=== PATIENT | male | born 1995 | race Caucasian/White ===

== ENCOUNTER 2016-11-02 21:34 | Emergency (ER) | payer SELFPAY ==
[~2016-11-02] VITALS: Ht 185.4 cm; Wt 68.3 kg
[~2016-11-02 21:34] MED LIST: IBUP800T23 PO; ZOFR4TAB3 SL
[2016-11-02 21:44] VITALS: BP 136/63; PULSE 81; RESP 18; TEMP 99.3; O2SAT 99
[2016-11-02 22:05] VITALS: BP 136/63; PULSE 81; RESP 18; TEMP 99.3; O2SAT 99
[2016-11-02] MEDS ORDERED: SODIUM CHLOR 0.9% 1000 ML INJ 1,000 ML IV SCH (22:09)
[2016-11-02] MEDS ORDERED: PANTOPRAZOLE SODIUM 40 MG VIAL IVP ONE (22:15)
--- NOTE | 2016-11-02 22:16 | PD ---
HPI Chief Complaint: Flank/Kidney Pain Time Seen by Provider: 22:03 Travel History International Travel<30 days: No Contact w/Intl Traveler<30days: No Traveled to known affect area: No History of Present Illness HPI 21-year-old male complains of abdominal pain. Patient states that the pain started yesterday afternoon. Patient states the pain cramping pain localized upper abdomen radiation to the flank area. Patient denies any fever chills. Patient denies any dysuria or frequency. Patient denies any back pain. Patient states the pain is worse with bending over. On a scale of 1-10 the pain is a 7. 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 Patient also has history ADD and asthma. Patient states that last alcohol consumption was several months ago. PFSH Past Medical History ADD: Yes ADHD: Yes Asthma: Yes Bipolar Disorder: Yes Cancer: No Diminished Hearing: No Endocrine: Yes (HYPOGLYCEMIA, NO MEDICATION FOR IT) Hepatitis: No Hiatal Hernia: No Neurologic: Yes Respiratory: Yes (ASTHMA A CHILD) Immunizations Current: Yes (ALL UTD ) Seizures: Yes ( A CHILD) Thyroid Disease: No Past Surgical History Abdominal Surgery: No Cardiac Surgery: No Ear Surgery: No Endocrine Surgery: No Eye Surgery: No Genitourinary Surgery: No Gynecologic Surgery: No Oral Surgery: No Pacemaker: No Thoracic Surgery: No Other Surgery: Yes (NASAL SURGERY ) Social History Alcohol Use: No (3 months) Tobacco Use: Yes (1 ppd) Substance Use: Yes (MARIJUANA) Allergies-Medications (Allergen,Severity, Reaction): Coded Allergies: Bee Sting (Verified Allergy, Severe, SWELLING, ASTHMA, 07/28/15) Reported Meds & Prescriptions Reported Meds & Active Scripts Active Ibuprofen 800 Mg Tab 800 Mg PO TID PRN Zofran ODT (Ondansetron HCl) 4 Mg Tab 4 Mg SL Q6H PRN FOR NAUSEA/VOMITING Review of Systems General / Constitutional: No: Fever Eyes: No: Visual changes HENT: No: Headaches Cardiovascular: No: Chest Pain or Discomfort Respiratory: No: Shortness of Breath Gastrointestinal: Positive: Abdominal Pain Genitourinary: No: Dysuria Musculoskeletal: No: Pain Skin: No Rash Neurologic: No: Weakness Psychiatric: No: Depression Endocrine: No: Polydipsia Hematologic/Lymphatic: No: Easy Bruising Physical Exam Narrative GENERAL: Well-nourished, well-developed patient. SKIN: Focused skin assessment warm/dry. HEAD: Normocephalic. EYES: No scleral icterus. No injection or drainage. NECK: Supple, trachea midline. No JVD or lymphadenopathy. CARDIOVASCULAR: Regular rate and rhythm without murmurs, gallops, or rubs. RESPIRATORY: Breath sounds equal bilaterally. No accessory muscle use. GASTROINTESTINAL: Abdomen soft, nondistended. Patient has mild to moderate tenderness on palpation upper abdomen. No rebound tenderness. No mass. MUSCULOSKELETAL: No cyanosis, or edema. BACK: Nontender without obvious deformity. No CVA tenderness. Neurologic exam normal. Data Data Last Documented VS Vital Signs Date Time Temp Pulse Resp B/P Pulse Ox O2 Delivery O2 Flow Rate FiO2 11/02/16 22:42 74 18 128/54 98 Room Air 11/02/16 22:05 99.3 Orders Complete Blood Count With Diff (11/02/16 22:09) Comprehensive Metabolic Panel (11/02/16 22:09) Lipase (11/02/16 22:09) Urinalysis - C+S If Indicated (11/02/16 22:09) Ct Abd/Pel W Iv Contrast(Rout) (11/02/16 22:09) Iv Access Insert/Monitor (11/02/16 22:09) Ecg Monitoring (11/02/16 22:09) Oximetry (11/02/16 22:09) Pantoprazole Inj (Protonix Inj) (11/02/16 22:15) Sodium Chlor 0.9% 1000 Ml Inj (Ns 1000 M (11/02/16 22:09) Al-Mag Hy-Si 40-40-4 Mg/Ml Liq (Mag-Al P (11/02/16 23:00) Yengj-Ihyuvy-Ukgqsj-Pb Liq ( Liq (11/02/16 23:00) Iohexol 350 Inj (Omnipaque 350 Inj) (11/02/16 23:08) Labs Laboratory Tests Test 11/02/16 11/02/16 22:20 22:27 Urine Color YELLOW Urine Turbidity CLEAR Urine pH 6.0 Urine Specific [place] 1.025 Urine Protein TRACE mg/dL Urine Glucose (UA) NEG mg/dL Urine Ketones 15 mg/dL Urine Occult Blood TRACE Urine Nitrite NEG Urine Bilirubin NEG Urine Leukocyte Esterase NEG Urine RBC 0-3 /hpf Urine WBC 3-5 /hpf Urine Squamous Epithelial 0-5 /hpf Cells Urine Bacteria OCC /hpf Microscopic Urinalysis Comment CULT NOT INDICATED White Blood Count 5.4 TH/MM3 Red Blood Count 4.38 MIL/MM3 Hemoglobin 13.1 GM/DL Hematocrit 39.0 % Mean Corpuscular Volume 88.9 FL Mean Corpuscular Hemoglobin 30.0 PG Mean Corpuscular Hemoglobin 33.7 % Concent Red Cell Distribution Width 13.1 % Platelet Count 193 TH/MM3 Mean Platelet Volume 8.4 FL Neutrophils (%) (Auto) 63.4 % Lymphocytes (%) (Auto) 23.7 % Monocytes (%) (Auto) 11.7 % Eosinophils (%) (Auto) 0.5 % Basophils (%) (Auto) 0.7 % Neutrophils # (Auto) 3.5 TH/MM3 Lymphocytes # (Auto) 1.3 TH/MM3 Monocytes # (Auto) 0.6 TH/MM3 Eosinophils # (Auto) 0.0 TH/MM3 Basophils # (Auto) 0.0 TH/MM3 CBC Comment DIFF FINAL Differential Comment Sodium Level 137 MEQ/L Potassium Level 3.3 MEQ/L Chloride Level 103 MEQ/L Carbon Dioxide Level 26.3 MEQ/L Anion Gap 8 MEQ/L Blood Urea Nitrogen 9 MG/DL Creatinine 1.00 MG/DL Estimat Glomerular Filtration 93 ML/MIN Rate Random Glucose 130 MG/DL Calcium Level 8.8 MG/DL Total Bilirubin 0.2 MG/DL Aspartate Amino Transf 17 U/L (AST/SGOT) Alanine Aminotransferase 26 U/L (ALT/SGPT) Alkaline Phosphatase 49 U/L Total Protein 7.0 GM/DL Albumin 3.7 GM/DL Lipase 125 U/L [facility] Medical Decision Making Medical Screen Exam Complete: Yes Emergency Medical Condition: Yes Interpretation(s) Last Impressions Abdomen/Pelvis CT 11/02/16 3679 Signed Impressions: Service Date/Time: Wednesday, November 02, 2016 22:55 - CONCLUSION: Normal examination. I believe the appendix is retrocecal but unremarkable. Payam Bergeron MD 23:35 PM. CBC within normal limit. CMP within normal limit. Potassium 3.3. UA is negative. Differential Diagnosis Differential diagnosis including gastritis, PUD, pancreatitis, cholecystitis, colitis, UTI, pyelonephritis, nephrolithiasis, appendicitis. Narrative Course 21-year-old male with upper abdominal pain. History of alcohol-induced pancreatitis. Normal saline solution 1 25 cc an hour. Protonix 40 mg IV. Diagnosis Primary Impression: Abdominal pain Qualified Code: R10.10 - Pain of upper abdomen Additional Impression: Gastritis Qualified Code: K29.00 - Acute gastritis without hemorrhage, unspecified gastritis type Patient Instructions: General Instructions Additional Instructions: Take medications as directed. Follow-up with personal physician and GI specialist. Return if persistent problem or worse. Med/Other Pt SpecificInfo: Prescription(s) given Scripts Dicyclomine (Bentyl)10 Mg Cap10 Mg PO TID PRN (Bowel Management) #21 CAP Ref 0 Prov:Eduar Patterson MD 11/02/16 Sucralfate (Carafate)1 Gm Tab1 Gm PO QID #120 TAB Ref 0 On empty stomach Prov:Eduar Patterson MD 11/02/16 Pantoprazole (Protonix)20 Mg Tab20 Mg PO DAILY #30 TAB Prov:Eduar Patterson MD 11/02/16 Disposition: 01 DISCHARGE HOME Condition: Stable Eduar Patterson MD Nov 02, 2016 22:16
[2016-11-02 22:35] LABS: BLOOD, URINE TRACE (NEG); GLUCOSE,URINE NEG (NEG); KETONE, URINE 15 mg/dL (NEG); NITRITE,URINE NEG (NEG)
[2016-11-02 22:37] LABS: AUTOMATED NEUTROPHIL # 3.5 TH/MM3 (1.8-7.7); BASOPHIL % 0.7 % (0.0-2.0); EOSINOPHIL % 0.5 % (0.0-4.0); HEMO FLAGS DIFF FINAL; LYMPH % 23.7 % (9.0-44.0); LYMPHOCYTE # 1.3 TH/MM3 (1.0-4.8); MEAN CELL VOLUME 88.9 FL (80.0-100.0); MEAN CORPUSCULAR HGB CONC 33.7 % (32.0-36.0); MONO % 11.7 % (0.0-8.0); NEUT % 63.4 % (16.0-70.0); PLATELET COUNT 193 TH/MM3 (150-450); RED BLOOD COUNT 4.38 MIL/MM3 (4.50-5.90); RED CELL DISTRIBUTION WIDTH 13.1 % (11.6-17.2); WHITE BLOOD COUNT 5.4 TH/MM3 (4.0-11.0)
[2016-11-02 22:41] VITALS: O2SAT 98
[2016-11-02 22:41] LABS: BACTERIA, URINE OCC /hpf; COMMENT (UR) CULT NOT INDICATED; CULTURE IF INDICATED CULT NOT INDICATED; RBC, URINE 0-3 /hpf (0-3); SQUAMOUS EPITHELIAL CELL URINE 0-5 /hpf (0-5); URINE COLOR YELLOW (YELLW/STRAW)
[2016-11-02 22:42] VITALS: BP 128/54; PULSE 74; RESP 18; O2SAT 98
[2016-11-02 22:45] LABS: CHLORIDE 103 MEQ/L (98-107); POTASSIUM 3.3 MEQ/L (3.5-5.1); SODIUM (NA) 137 MEQ/L (136-145)
[2016-11-02 22:49] LABS: ANION GAP 8 MEQ/L (5-15); BICARBONATE 26.3 MEQ/L (21.0-32.0); BLOOD UREA NITROGEN 9 MG/DL (7-18)
[2016-11-02 22:52] LABS: ALT (GPT) 26 U/L (12-78); AST (GOT) 17 U/L (15-37); GLOMERULAR FILTRATION RATE 93 ML/MIN (>89)
[2016-11-02 22:53] LABS: TOTAL BILIRUBIN ADULT 0.2 MG/DL (0.2-1.0)
[2016-11-02 22:54] LABS: ALKALINE PHOSPHATASE 49 U/L (45-117)
[2016-11-02] MEDS ORDERED: ALUMINUM/MAGNESIUM/SIMETH 30 ML CUP PO ONE (23:00)
[2016-11-02] MEDS ORDERED: ATROPINE/SCOPOLAM/HYOSCYAM/PB ELIXIR 10 ML CUP PO ONE (23:00)
[2016-11-02] MEDS ORDERED: IOHEXOL 350 MG/ML 10 ML VIAL (for RAD DIAG) IV ONE (23:08)
--- NOTE | 2016-11-02 23:28 | RADRPT ---
EXAM DATE/TIME: 11/02/2016 22:55 [facility] COMPARISON: No previous studies available for comparison. INDICATIONS : Bilateral flank painsince yesterday. Prior history of pancreatitis IV CONTRAST: 97 cc Omnipaque 350 (iohexol) IV ORAL CONTRAST: No oral contrast ingested. RADIATION DOSE: 4.68 CTDIvol (mGy) MEDICAL HISTORY : Pancreatitis. SURGICAL HISTORY : None. ENCOUNTER: Initial ACUITY: 1 day PAIN SCALE: 10/10 LOCATION: Bilateral flank TECHNIQUE: Volumetric scanning of the abdomen and pelvis was performed. Using automated exposure control and ad justment of the mA and/or kV according to patient size, radiation dose was kept as low as reasonably achievable to obtain optimal diagnostic quality images. DICOM format image data is available electro nically for review and comparison. FINDINGS: LOWER LUNGS: The visualized lower lungs are clear. LIVER: Homogeneous density without lesion. There is no dilation of the biliary tree. No calcified [place] es. SPLEEN: Normal size without lesion. PANCREAS: Within normal limits. KIDNEYS: Normal in size and shape. There is no mass, stone or hydronephrosis. ADRENAL GLANDS: Within normal limits. VASCULAR: There is no aortic aneurysm. BOWEL/MESENTERY: The stomach, small bowel, and colon demonstrate no acute abnormality. There is no free intraperitone al air or fluid. ABDOMINAL WALL: Within normal limits. RETROPERITONEUM: There is no lymphadenopathy. BLADDER: No wall thickening or mass. REPRODUCTIVE: Within normal limits. INGUINAL: There is no lymphadenopathy or hernia. MUSCULOSKELETAL: Within normal limits for patient age. CONCLUSION: Normal examination. I believe the appendix is retrocecal but unremarkable. Payam Bergeron MD on November 02, 2016 at 23:25 Board Certified Radiologist. This report was verified electronically.
[2016-11-02] MEDS ORDERED: DICY10 PO (23:40)
[2016-11-02] MEDS ORDERED: PANT20 PO (23:40)
[2016-11-02] MEDS ORDERED: CARA1TAB6 PO (23:40)
[2016-11-03 00:03] VITALS: BP 136/58
== END 2016-11-03 00:05 | disposition home or self-care (01) ==
LOC: PHED 21:34
DX: R10.10 Upper abdominal pain, unspecified (principal); K29.00 Acute gastritis without bleeding; F17.200 Nicotine dependence, unspecified, uncomplicated; Z87.19 Personal history of other diseases of the digestive system; Z86.59 Personal history of other mental and behavioral disorders; Z87.09 Personal history of other diseases of the respiratory system; Z86.39 Personal history of other endocrine, nutritional and metabolic disease; Z86.69 Personal history of other diseases of the nervous system and sense organs
CPT/HCPCS: 74177; 80053; 81001; 83690; 85025; 96361; 96374; 99285; C9113; J7030; Q9967

== ENCOUNTER 2016-11-14 01:34 | Emergency (ER) | payer SELFPAY ==
[~2016-11-14] VITALS: Ht 185.4 cm; Wt 69.1 kg
[~2016-11-14 01:34] MED LIST changes: +CARA1TAB6 PO; +DICY10 PO; +PANT20 PO
[2016-11-14 01:48] VITALS: BP 126/59; PULSE 88; RESP 16; TEMP 99.6; O2SAT 98
[2016-11-14 02:42] LABS: BLOOD, URINE NEG (NEG); GLUCOSE,URINE NEG (NEG); KETONE, URINE NEG (NEG); NITRITE,URINE NEG (NEG); PH, URINE 6.5 (5.0-8.5)
[2016-11-14 03:04] LABS: URINE COLOR YELLOW (YELLW/STRAW)
[2016-11-14 03:05] LABS: COMMENT (UR) CULT NOT INDICATED; CULTURE IF INDICATED CULT NOT INDICATED; SQUAMOUS EPITHELIAL CELL URINE 0-5 /hpf (0-5)
[2016-11-14 04:01] VITALS: BP 133/61; PULSE 95; RESP 18; O2SAT 99
--- NOTE | 2016-11-14 05:45 | PD ---
HPI Chief Complaint: Pain: Acute or Chronic Time Seen by Provider: 05:41 Travel History International Travel<30 days: No Contact w/Intl Traveler<30days: No Traveled to known affect area: No History of Present Illness HPI The patient is a 21-year-old male who complains of right testicular pain for 3 days. He has nausea without vomiting. He denies any fever. He denies any dysuria, frequency or urgency. He denies any abdominal pain. He denies any penile discharge. PFSH Past Medical History ADD: Yes ADHD: Yes Asthma: Yes Bipolar Disorder: Yes Cancer: No Diminished Hearing: No Endocrine: Yes (HYPOGLYCEMIA, NO MEDICATION FOR IT) Hepatitis: No Hiatal Hernia: No Neurologic: Yes Respiratory: Yes (ASTHMA A CHILD) Immunizations Current: Yes (ALL UTD ) Pancreatitis: Yes (HISTORY OF) Seizures: Yes ( A CHILD from fever) Thyroid Disease: No Tetanus Vaccination: Unknown Influenza Vaccination: No Past Surgical History Abdominal Surgery: No Cardiac Surgery: No Ear Surgery: No Endocrine Surgery: No Eye Surgery: No Genitourinary Surgery: No Gynecologic Surgery: No Oral Surgery: No Pacemaker: No Thoracic Surgery: No Other Surgery: Yes (NASAL SURGERY 2010) Social History Alcohol Use: No (quit in 2013) Tobacco Use: Yes (1 ppd) Substance Use: Yes (MARIJUANA) Allergies-Medications (Allergen,Severity, Reaction): Coded Allergies: Bee Sting (Verified Allergy, Severe, SWELLING, ASTHMA, 11/14/16) Reported Meds & Prescriptions Reported Meds & Active Scripts Active Hasty (Hydrocodone-Acetaminophen) 5-325 mg Tab 1 Tab PO Q6H PRN Ibuprofen 600 Mg Tab 600 Mg PO Q6H PRN Doxycycline Hyclate 100 Mg Cap 100 Mg PO BID Review of Systems Except as stated in HPI: all other systems reviewed are Neg Physical Exam Narrative GENERAL: The patient is alert, oriented 3 and slight apparent distress with his right testicular pain. His vital signs are normal. SKIN: Focused skin assessment warm/dry. HEAD: Atraumatic. Normocephalic. EYES: Pupils equal and round. No scleral icterus. No injection or drainage. ENT: No nasal bleeding or discharge. Mucous membranes pink and moist. NECK: Trachea midline. No JVD. CARDIOVASCULAR: Regular rate and rhythm. No murmur appreciated. RESPIRATORY: No accessory muscle use. Clear to auscultation. Breath sounds equal bilaterally. GASTROINTESTINAL: Abdomen soft, non-tender, nondistended. Hepatic and splenic margins not palpable. No guarding or rebound is present. MUSCULOSKELETAL: No obvious deformities. No clubbing. No cyanosis. No edema. NEUROLOGICAL: Awake and alert. No obvious cranial nerve deficits. Motor grossly within normal limits. Normal speech. PSYCHIATRIC: Appropriate mood and affect; insight and judgment normal. GENITOURINARY: Circumcised. Testes the right testes appears to be slightly rotated and slightly swollen. The right testicle is slightly tender, the left testis is not tender and not swollen. No urethral discharge. Data Data Last Documented VS Vital Signs Date Time Temp Pulse Resp B/P Pulse Ox O2 Delivery O2 Flow Rate FiO2 11/14/16 08:49 73 16 117/59 100 11/14/16 07:15 Room Air 11/14/16 01:48 99.6 Orders Urinalysis - C+S If Indicated (11/14/16 02:32) Us Testicles W Doppler (11/14/16 05:44) Ibuprofen (Motrin) (11/14/16 07:30) Acetamin-Hydrocod 325-5 Mg ([place] 5-325 (11/14/16 07:30) Ceftriaxone Inj (Rocephin Inj) (11/14/16 07:30) Sodium Chloride 0.9% Flush (Ns Flush) (11/14/16 07:30) Lidocaine 1% Inj (50 Ml) (Xylocaine 1% I (11/14/16 07:30) Labs Laboratory Tests Test 11/14/16 02:30 Urine Color YELLOW Urine Turbidity CLEAR Urine pH 6.5 Urine Specific [place] 1.005 Urine Protein NEG mg/dL Urine Glucose (UA) NEG mg/dL Urine Ketones NEG mg/dL Urine Occult Blood NEG Urine Nitrite NEG Urine Bilirubin NEG Urine Leukocyte Esterase NEG Urine Squamous Epithelial 0-5 /hpf Cells Microscopic Urinalysis Comment CULT NOT INDICATED MDM Medical Decision Making Medical Screen Exam Complete: Yes Emergency Medical Condition: Yes Medical Record Reviewed: Yes Differential Diagnosis Testicular torsion, orchitis, epididymitis, urinary tract infection Narrative Course The patient is transferred to Dr. Rain at this time, it is 7 AM. He will review the results of the Doppler ultrasound. Scripts Hydrocodone-Acetaminophen (Hasty)5-325 mg Tab1 Tab PO Q6H PRN (PAIN) #12 TAB Ref 0 Prov:Eren Rain MD 11/14/16 Ibuprofen 600 Mg [id number] Mg PO Q6H PRN (Pain/Inflammation) #20 TAB Ref 0 Prov:Eren Rain MD 11/14/16 Doxycycline Hyclate 100 Mg [id number] Mg PO BID #20 CAP Ref 0 Prov:Eren Rain MD 11/14/16 Richie Parra MD Nov 14, 2016 05:45
[2016-11-14 06:16] VITALS: BP 131/51; PULSE 70; RESP 16; O2SAT 98
--- NOTE | 2016-11-14 07:01 | PD ---
Physical Exam Date Seen by Provider: Nov 14, 2016 Time Seen by Provider: 06:59 Narrative The patient is a 21-year-old male who was initially evaluated by the previous physician, Dr. Parra. Please refer to the initial history, physical, diagnostic evaluation, and treatment modality plan. Data Data Last Documented VS Vital Signs Date Time Temp Pulse Resp B/P Pulse Ox O2 Delivery O2 Flow Rate FiO2 11/14/16 06:16 70 16 131/51 98 Room Air 11/14/16 01:48 99.6 Orders Urinalysis - C+S If Indicated (11/14/16 02:32) Us Testicles W Doppler (11/14/16 05:44) Ibuprofen (Motrin) (11/14/16 07:30) Acetamin-Hydrocod 325-5 Mg ([place] 5-325 (11/14/16 07:30) Labs Laboratory Tests Test 11/14/16 02:30 Urine Color YELLOW Urine Turbidity CLEAR Urine pH 6.5 Urine Specific [place] 1.005 Urine Protein NEG mg/dL Urine Glucose (UA) NEG mg/dL Urine Ketones NEG mg/dL Urine Occult Blood NEG Urine Nitrite NEG Urine Bilirubin NEG Urine Leukocyte Esterase NEG Urine Squamous Epithelial 0-5 /hpf Cells Microscopic Urinalysis Comment CULT NOT INDICATED MDM Medical Record Reviewed: Yes Supervised Visit with NICOLE: No Interpretation(s) Last Impressions Scrotum Ultrasound 11/14/1644 Signed Impressions: Service Date/Time: Monday, November 14, 2016 06:47 - CONCLUSION: 1. Hyperemic right testis suggesting orchitis in the proper clinical setting. No testicular masses. 2. The left testis is normal. 3. Left greater than right varicoceles. Festus Carroll MD Laboratory Tests Test 11/14/16 02:30 Urine Color YELLOW Urine Turbidity CLEAR Urine pH 6.5 Urine Specific [place] 1.005 Urine Protein NEG mg/dL Urine Glucose (UA) NEG mg/dL Urine Ketones NEG mg/dL Urine Occult Blood NEG Urine Nitrite NEG Urine Bilirubin NEG Urine Leukocyte Esterase NEG Urine Squamous Epithelial 0-5 /hpf Cells Microscopic Urinalysis Comment CULT NOT INDICATED Ultrasound the testicle with Doppler reveals hyperemic right testes suggesting orchitis in the proper clinical setting. No testicular masses. The left testes is normal. Left greater than right varicoceles. Differential Diagnosis Differential diagnosis includes epididymitis, varicocele, hydrocele, testicular torsion, abscess, hernia, anasarca, UTI, STI. Narrative Course The patient is a 21-year-old male who was initially evaluated by the previous physician, Dr. Parra. Please refer to the initial history, physical, diagnostic evaluation, and treatment modality plan. The patient was signed out at 7 AM with ultrasound of the testicle/scrotum pending. UA was unremarkable. Ultrasound reveals orchitis the right testicle. The patient was administered ibuprofen and [place] for pain. The patient's etiology could be bacterial versus viral. He does note subjective fevers and chills, denies any URI symptoms. Therefore, patient will be treated with Rocephin and doxycycline, however, he is advised the orchitis could be viral in origin. He will be provided pain medications, is advised elevate and ice the areas needed and follow-up with urology. Diagnosis Primary Impression: Orchitis Patient Instructions: General Instructions Additional Instruction: Medications as directed. Follow-up with urology as needed. Elevate and ice as needed. Activity as tolerated. Please provide the patient a copy of his ultrasound results at discharge. Med/Other Pt SpecificInfo: Prescription(s) given Scripts Hydrocodone-Acetaminophen ([place])5-325 mg Tab1 Tab PO Q6H PRN (PAIN) #12 TAB Ref 0 Prov:Eren Rain MD 11/14/16 Ibuprofen 600 Mg [id number] Mg PO Q6H PRN (Pain/Inflammation) #20 TAB Ref 0 Prov:Eren Rain MD 11/14/16 Doxycycline Hyclate 100 Mg [id number] Mg PO BID #20 CAP Ref 0 Prov:Eren Rain MD 11/14/16 Disposition: 01 DISCHARGE HOME Condition: Stable Eren Rain MD Nov 14, 2016 07:01
[2016-11-14 07:15] VITALS: BP 129/55; PULSE 78; RESP 16; O2SAT 98
--- NOTE | 2016-11-14 07:15 | RADRPT ---
EXAM DATE/TIME: 11/14/2016 06:47 [facility] COMPARISON: No previous studies available for comparison. INDICATIONS : Right testicle and groin pain. MEDICAL HISTORY : Pancreatitis. SURGICAL HISTORY : None. ENCOUNTER: Initial ACUITY: 3 days PAIN SCORE: 10/10 LOCATION: Bilateral testicle. MEASUREMENTS: RIGHT TESTICLE: 5.5 x 3.6 x 2.7cm LEFT TESTICLE: 3.7 x 3.7 x 2.3cm FINDINGS: Right testicle is hyperemic relative to the left. No masses are seen. Right and left epididymes are n ormal. There is a tiny right and a moderate to large left varicocele. No hydrocele fluid. CONCLUSION: 1. Hyperemic right testis suggesting orchitis in the proper clinical setting. No testicular masses. 2. The left testis is normal. 3. Left greater than right varicoceles. Festus Carroll MD on November 14, 2016 at 7:11 Board Certified Radiologist. This report was verified electronically.
[2016-11-14] MEDS ORDERED: IBUP-232 PO (07:28)
[2016-11-14] MEDS ORDERED: NORC5TAB PO (07:28)
[2016-11-14] MEDS ORDERED: DOXY100C PO (07:28)
[2016-11-14] MEDS ORDERED: ACETAMINOPHEN/HYDROcodone 325 MG/5 MG TAB PO ONE (07:30)
[2016-11-14] MEDS ORDERED: IBUPROFEN 400 MG TAB PO ONE (07:30)
[2016-11-14] MEDS ORDERED: LIDOCAINE HCL 1% 50 ML VIAL XX ONE (07:30)
[2016-11-14] MEDS ORDERED: SODIUM CHLORIDE 0.9% FLUSH 10 ML FLUSH IVF PRN (07:30)
[2016-11-14] MEDS ORDERED: cefTRIAXone 250 MG VIAL IM ONE (07:30)
[2016-11-14 08:43] VITALS: RESP 16
[2016-11-14 08:49] VITALS: BP 117/59
== END 2016-11-14 08:57 | disposition home or self-care (01) ==
LOC: PHED 01:34
DX: N45.2 Orchitis (principal); R11.0 Nausea; F17.200 Nicotine dependence, unspecified, uncomplicated; Z86.59 Personal history of other mental and behavioral disorders; Z87.09 Personal history of other diseases of the respiratory system; Z86.39 Personal history of other endocrine, nutritional and metabolic disease; Z86.69 Personal history of other diseases of the nervous system and sense organs
CPT/HCPCS: 76870; 81001; 93975; 96372; 99285; J0696

== ENCOUNTER 2017-03-11 22:35 | Emergency (ER) | payer SELFPAY ==
[~2017-03-11] VITALS: Ht 185.4 cm; Wt 68.7 kg
[~2017-03-11 22:35] MED LIST changes: -CARA1TAB6 PO; -DICY10 PO; +DOXY100C PO; +IBUP-232 PO; -IBUP800T23 PO; +NORC5TAB PO; -PANT20 PO; -ZOFR4TAB3 SL
[2017-03-11 22:41] VITALS: BP 152/62; PULSE 90; RESP 18; TEMP 98.1; O2SAT 98
--- NOTE | 2017-03-11 23:39 | PD ---
HPI Chief Complaint: Pain: Acute or Chronic Time Seen by Provider: 23:32 Travel History International Travel<30 days: No Contact w/Intl Traveler<30days: No Traveled to known affect area: No History of Present Illness HPI 21-year-old male presents to the emergency department for complaint of continuous pain to the right groin since yesterday afternoon. Patient denies any injury. Patient is not noticed any mass knee area. Patient denies any referred pain into the scrotum or testicles. No penile discharge no dysuria frequency urgency or flank pain. Patient complains of chills without fever. Patient rates his pain 10 over 10 in intensity. Patient's had no nausea or vomiting. Patient also complains of generalized abdominal pain. Patient denies any flank pain. Patient was seen in November and diagnosed with orchitis affecting the right testicle. Patient states he had left over hydrocodone and took a dose of that medication today with minimal relief of his pain. Patient states pain has been constant and progressively worsening and has not been remitting. The patient is unable to identify exacerbating or alleviating factors although does prefer standing to sitting. No no bladder or bowel dysfunction. No rectal pain. PFSH Past Medical History Narrative Medical Asthma ADD ADHD bipolar disorder hypoglycemia febrile seizure immunizations current tobacco use marijuana use; nursing notes reviewed ADD: Yes ADHD: Yes Asthma: Yes Bipolar Disorder: Yes Cancer: No Diminished Hearing: No Endocrine: Yes (HYPOGLYCEMIA, NO MEDICATION FOR IT) Genitourinary: Yes (ORCHITIS) Hepatitis: No Hiatal Hernia: No Medical other: Yes (HYPOGLYCEMIC) Neurologic: Yes Respiratory: Yes (ASTHMA A CHILD) Immunizations Current: Yes (ALL UTD ) Pancreatitis: Yes (HISTORY OF) Seizures: Yes ( A CHILD from fever) Thyroid Disease: No ?: Not Past Surgical History Abdominal Surgery: No Cardiac Surgery: No Ear Surgery: No Endocrine Surgery: No Eye Surgery: No Genitourinary Surgery: No Gynecologic Surgery: No Oral Surgery: No Pacemaker: No Thoracic Surgery: No Other Surgery: Yes (NASAL SURGERY 2010) Social History Alcohol Use: No (quit in 2013) Tobacco Use: Yes (1 ppd) Substance Use: Yes (MARIJUANA) Allergies-Medications (Allergen,Severity, Reaction): Coded Allergies: bee venom protein (honey bee) (Verified Allergy, Severe, SWELLING, ASTHMA , 03/11/17) Reported Meds & Prescriptions Reported Meds & Active Scripts Active Percocet (Oxycodone-Acetaminophen) 5-325 mg Tab 1 Tab PO Q6H PRN Ibuprofen 600 Mg Tab 600 Mg PO Q6H PRN [place] (Hydrocodone-Acetaminophen) 5-325 mg Tab 1 Tab PO Q6H PRN Review of Systems Except as stated in HPI: all other systems reviewed are Neg Physical Exam Narrative GENERAL: Well-developed well-nourished male in no apparent distress no respiratory distress SKIN: Warm and dry. HEAD: Normocephalic. EYES: No scleral icterus. No injection or drainage. NECK: Supple, trachea midline. No JVD or lymphadenopathy. CARDIOVASCULAR: Regular rate and rhythm without murmurs, gallops, or rubs. RESPIRATORY: Breath sounds equal bilaterally. No accessory muscle use. GASTROINTESTINAL: Abdomen soft, mildly diffusely tender to palpation without guarding or rebound, nondistended. : Circumcised male with bilaterally descended testicles no scrotal edema erythema testicular pain tenderness or mass no high riding testicle. No inguinal hernia. Bilaterally decreased cremasteric reflex. No redness no induration no pustules no vesicles no urethral meatal discharge. MUSCULOSKELETAL: No cyanosis, or edema. BACK: Nontender without obvious deformity. No CVA tenderness. Data Data Last Documented VS Vital Signs Date Time Temp Pulse Resp B/P (MAP) Pulse Ox O2 Delivery O2 Flow Rate FiO2 03/11/17 22:41 98.1 90 18 152/62 (92) 98 Orders Orders Basic Metabolic Panel (Bmp) (03/11/17 23:32) Complete Blood Count With Diff (03/11/17 23:32) Ua Includes Microscopic (03/11/17 23:32) Gc And Chlamydia Pcr (03/11/17 23:32) Us Testicles W Doppler (03/11/17 23:32) Iv Access Insert/Monitor (03/11/17 23:32) Ketorolac Inj (Toradol Inj) (03/11/17 23:45) Ondansetron Inj (Zofran Inj) (03/11/17 23:45) Sodium Chloride 0.9% Flush (Ns Flush) (03/11/17 23:45) NPO (03/11/17 23:32) Ct Abd/Pel W Iv Contrast(Rout) (03/12/17 ) Iohexol 350 Inj (Omnipaque 350 Inj) (03/12/17 01:08) Labs Laboratory Tests Test 03/11/17 23:45 White Blood Count 9.0 TH/MM3 Red Blood Count 4.66 MIL/MM3 Hemoglobin 13.2 GM/DL Hematocrit 41.6 % Mean Corpuscular Volume 89.3 FL Mean Corpuscular Hemoglobin 28.4 PG Mean Corpuscular Hemoglobin Concent 31.8 % Red Cell Distribution Width 13.3 % Platelet Count 279 TH/MM3 Mean Platelet Volume 7.7 FL Neutrophils (%) (Auto) 76.7 % Lymphocytes (%) (Auto) 14.2 % Monocytes (%) (Auto) 8.0 % Eosinophils (%) (Auto) 0.6 % Basophils (%) (Auto) 0.5 % Neutrophils # (Auto) 6.9 TH/MM3 Lymphocytes # (Auto) 1.3 TH/MM3 Monocytes # (Auto) 0.7 TH/MM3 Eosinophils # (Auto) 0.1 TH/MM3 Basophils # (Auto) 0.0 TH/MM3 CBC Comment DIFF FINAL Differential Comment Urine Collection Type VOIDED Urine Color STRAW Urine Turbidity CLEAR Urine pH 7.0 Urine Specific [place] 1.018 Urine Protein NEG mg/dL Urine Glucose (UA) NEG mg/dL Urine Ketones NEG mg/dL Urine Occult Blood NEG Urine Nitrite NEG Urine Bilirubin NEG Urine Leukocyte Esterase NEG Urine WBC 0-2 /hpf Urine Squamous Epithelial Cells 0-2 /hpf Microscopic Urinalysis Comment Blood Urea Nitrogen 12 MG/DL Creatinine 0.83 MG/DL Random Glucose 103 MG/DL Calcium Level 8.8 MG/DL Sodium Level 136 MEQ/L Potassium Level 3.4 MEQ/L Chloride Level 103 MEQ/L Carbon Dioxide Level 25.8 MEQ/L Anion Gap 7 MEQ/L Estimat Glomerular Filtration Rate 116 ML/MIN [facility] Medical Decision Making Medical Screen Exam Complete: Yes Emergency Medical Condition: Yes Medical Record Reviewed: Yes Interpretation(s) UA: wnl Last Impressions Abdomen/Pelvis CT 03/12/17 0000 Signed Impressions: Service Date/Time: Sunday, March 12, 2017 00:54 - CONCLUSION: Unremarkable exam. The right groin is unremarkable in appearance with no mass or hernia. Pedro Torres MD Scrotum Ultrasound 03/11/17 [id number] Signed Impressions: Service Date/Time: Sunday, March 12, 2017 00:00 - CONCLUSION: 1. Multiple bilateral varicoceles, left greater than right.. 2. The testicles are intact and are symmetric in appearance. Pedro Torres MD CBC & BMP Diagram 03/11/17 23:45 Calcium Level 8.8 Vital Signs Date Time Temp Pulse Resp B/P (MAP) Pulse Ox O2 Delivery O2 Flow Rate FiO2 03/11/17 22:41 98.1 90 18 152/62 (92) 98 Differential Diagnosis Hernia orchitis epididymoorchitis testicular torsion atypical appendicitis UTI musculoskeletal pain urethritis Narrative Course Specimens collected and sent for resulting ultrasound ordered Ultrasound reveals no acute process CT abdomen and pelvis ordered CT abdomen and pelvis reveals no acute abnormalities patient is clinically improved after Toradol 30 mg IV Patient informed of lab and imaging results in stable for outpatient management with recommendation to follow-up with urologist. Diagnosis Primary Impression: Right groin pain Additional Impression: Varicocele present on ultrasound of scrotum Referrals: Urologist call for appointment Dr Patel Patient Instructions: General Instructions Additional Instructions: Follow-up with urologist Return to emergency for any concerns or change in condition Take medications as prescribed as needed No work times one day May take acetaminophen/Tylenol every 4 hours as needed for fever 100.4F or greater or for minor pain Take ibuprofen/Advil/Motrin 600 mg as often as every 6 hours as needed for pain associated with inflammation or for fever 100.4F or greater Med/Other Pt SpecificInfo: Prescription(s) given Scripts Oxycodone-Acetaminophen (Percocet) 5-325 mg Tab 1 TAB PO Q6H Y for PAIN, #10 TAB 0 Refills Prov: Maria Eugenia Lyle MD 03/12/17 Ibuprofen (Ibuprofen) 600 Mg Tab 600 MG PO Q6H Y for Pain/Inflammation, #15 TAB 0 Refills Prov: Maria Eugenia Lyle MD 03/12/17 Disposition: DISCHARGE HOME Condition: Stable Maria Eugenia Lyle MD Mar 11, 2017 23:39
[2017-03-11] MEDS ORDERED: KETOROLAC TROMETHAMINE 30 MG/ML (IVP) VIAL IVP ONE (23:45)
[2017-03-11] MEDS ORDERED: SODIUM CHLORIDE 0.9% FLUSH 10 ML FLUSH IVF PRN (23:45)
[2017-03-11] MEDS ORDERED: ONDANSETRON HCL 4 MG/2 ML VIAL IVP ONE (23:45)
[2017-03-11 23:53] LABS: BLOOD, URINE NEG (NEG); GLUCOSE,URINE NEG (NEG); KETONE, URINE NEG (NEG); NITRITE,URINE NEG (NEG)
[2017-03-11 23:54] LABS: AUTOMATED NEUTROPHIL # 6.9 TH/MM3 (1.8-7.7); BASOPHIL % 0.5 % (0.0-2.0); EOSINOPHIL # 0.1 TH/MM3 (0-0.4); EOSINOPHIL % 0.6 % (0.0-4.0); HEMATOCRIT 41.6 % (39.0-51.0); LYMPH % 14.2 % (9.0-44.0); LYMPHOCYTE # 1.3 TH/MM3 (1.0-4.8); MEAN CELL VOLUME 89.3 FL (80.0-100.0); MEAN CORPUSCULAR HEMOGLOBIN 28.4 PG (27.0-34.0); MEAN CORPUSCULAR HGB CONC 31.8 % (32.0-36.0); NEUT % 76.7 % (16.0-70.0); PLATELET COUNT 279 TH/MM3 (150-450); RED BLOOD COUNT 4.66 MIL/MM3 (4.50-5.90); RED CELL DISTRIBUTION WIDTH 13.3 % (11.6-17.2)
[2017-03-11 23:57] LABS: HEMO FLAGS DIFF FINAL
[2017-03-11 23:59] LABS: METHOD OF COLLECTION VOIDED; SQUAMOUS EPITHELIAL CELL URINE 0-2 /hpf (0-5); URINE COLOR STRAW (YELLW/STRAW); WBC, URINE 0-2 /hpf (0-5)
[2017-03-12 00:03] LABS: BICARBONATE 25.8 MEQ/L (21.0-32.0); POTASSIUM 3.4 MEQ/L (3.5-5.1)
--- NOTE | 2017-03-12 00:22 | RADRPT ---
EXAM DATE/TIME: 03/12/2017 00:00 [facility] COMPARISON: US TESTICLE W/DOPPLER, November 14, 2016, 6:47. INDICATIONS : Testicle pain. MEDICAL HISTORY : Pancreatitis. Orchitis. Asthma. Diabetes. SURGICAL HISTORY : Nasal surgery. ENCOUNTER: Subsequent ACUITY: 1 day PAIN SCORE: 3/10 LOCATION: Bilateral testicles. MEASUREMENTS: RIGHT TESTICLE: 3.9 x 3.4 x 1.9 cm LEFT TESTICLE: 5.4 x 3.0 x 1.8cm FINDINGS: RIGHT TESTICLE: Homogeneous echotexture without intra or extratesticular mass. Blood flow is symmetric and within no rmal limits. No hydrocele. There are multiple varicoceles. Epididymis is within normal limits. LEFT TESTICLE: Homogeneous echotexture without intra or extratesticular mass. Blood flow is symmetric and within no rmal limits. No hydrocele. There are multiple varicoceles. Epididymis is within normal limits. SCROTUM: Within normal limits. CONCLUSION: 1. Multiple bilateral varicoceles, left greater than right.. 2. The testicles are intact and are symmetric in appearance. Pedro Torres MD on March 12, 2017 at 0:18 Board Certified Radiologist. This report was verified electronically.
[2017-03-12] MEDS ORDERED: IOHEXOL 350 MG/ML 10 ML VIAL (for RAD DIAG) IVCONTRAST ONE (01:08)
--- NOTE | 2017-03-12 01:38 | RADRPT ---
EXAM DATE/TIME: 03/12/2017 00:54 [facility] COMPARISON: CT ABDOMEN & PELVIS W CONTRAST, November 02, 2016, 22:55. INDICATIONS : Right groin pain. IV CONTRAST: 100 cc Omnipaque 350 (iohexol) IV ORAL CONTRAST: No oral contrast ingested. RADIATION DOSE: 5.58 CTDIvol (mGy) MEDICAL HISTORY : Pancreatitis. Orchitis. SURGICAL HISTORY : None. ENCOUNTER: Initial ACUITY: 1 day PAIN SCALE: 10/10 LOCATION: Right inguinal TECHNIQUE: Volumetric scanning of the abdomen and pelvis was performed. Using automated exposure control and ad justment of the mA and/or kV according to patient size, radiation dose was kept as low as reasonably achievable to obtain optimal diagnostic quality images. DICOM format image data is available electro nically for review and comparison. FINDINGS: LOWER LUNGS: The visualized lower lungs are clear. LIVER: Homogeneous density without lesion. There is no dilation of the biliary tree. No calcified gallston es. SPLEEN: Normal size without lesion. PANCREAS: Within normal limits. KIDNEYS: Normal in size and shape. There is no mass, stone or hydronephrosis. ADRENAL GLANDS: Within normal limits. VASCULAR: There is no aortic aneurysm. BOWEL/MESENTERY: The stomach, small bowel, and colon demonstrate no acute abnormality. There is no free intraperitone al air or fluid. ABDOMINAL WALL: Within normal limits. RETROPERITONEUM: There is no lymphadenopathy. BLADDER: No wall thickening or mass. REPRODUCTIVE: Within normal limits. INGUINAL: There is no lymphadenopathy or hernia. MUSCULOSKELETAL: Within normal limits for patient age. CONCLUSION: Unremarkable exam. The right groin is unremarkable in appearance with no mass or hernia. Pedro Torres MD on March 12, 2017 at 1:33 Board Certified Radiologist. This report was verified electronically.
[2017-03-12] MEDS ORDERED: PERC5TAB12 PO (02:05)
[2017-03-12] MEDS ORDERED: IBUP-232 PO (02:05)
[2017-03-12 02:50] VITALS: BP 147/62
[2017-03-12 04:45] LABS: CHLAMYDIA PCR NOT DETECTED (NOT DETECT); NEISSERIA PCR NOT DETECTED (NOT DETECT)
== END 2017-03-12 02:52 | disposition home or self-care (01) ==
LOC: PHED 22:35
DX: I86.1 Scrotal varices (principal); F17.200 Nicotine dependence, unspecified, uncomplicated
CPT/HCPCS: 74177; 76870; 80048; 81001; 85025; 87491; 87591; 93975; 96374; 96375; 99285; J1885; J2405; Q9967

== ENCOUNTER 2017-09-11 20:43 | Emergency (ER) | payer OTHER ==
[~2017-09-11] VITALS: Ht 185.4 cm; Wt 68.7 kg
[~2017-09-11 20:43] MED LIST changes: -DOXY100C PO; +PERC5TAB12 PO
[2017-09-11 20:54] VITALS: BP 140/58; PULSE 67; RESP 18; TEMP 98; O2SAT 98
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
--- NOTE | 2017-09-11 21:39 | RADRPT ---
EXAM DATE: 09/11/2017 9:33 PM EDT AGE/SEX: 21 years / Male INDICATIONS: Cough for 3 days CLINICAL DATA: This is the patient's initial encounter. Patient reports that signs and symptoms have been present for 3 days and indicates a pain score of 0/10. MEDICAL/SURGICAL HISTORY: None. None. COMPARISON: Chest x-ray 12/29/2013. FINDINGS: 2 portable frontal views of the chest show the lungs to be hyperaerated. No infiltrate or effusion. H eart is normal in size. Bony structures are unremarkable with exception of a mild scoliotic curvature . CONCLUSION: Hyperinflation. Clear lungs. Electronically signed by: Jake Taylor MD 09/11/2017 9:38 PM EDT
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
[2017-09-11 22:30] VITALS: BP 120/49; PULSE 71; RESP 16; O2SAT 98
[2017-09-11] MEDS ORDERED: ZITHTAB PO (22:33)
== END 2017-09-11 22:42 | disposition home or self-care (01) ==
LOC: PHED 20:43
DX: S00.33XA Contusion of nose, initial encounter (principal); W50.0XXA Accidental hit or strike by another person, initial encounter; J45.909 Unspecified asthma, uncomplicated; F90.9 Attention-deficit hyperactivity disorder, unspecified type; F31.9 Bipolar disorder, unspecified; F17.200 Nicotine dependence, unspecified, uncomplicated; F12.90 Cannabis use, unspecified, uncomplicated
CPT/HCPCS: 70160; 71045; 99284